=== PATIENT | female | born 1980 | race Hispanic/Latino ===

== ENCOUNTER 2017-10-06 10:12 | Inpatient (IN) | payer BC ==
[~2017-10-06] VITALS: Ht 160 cm; Wt 71.8 kg
[2017-10-06 10:53] VITALS: BP 141/74
[2017-10-06 10:56] LABS: BASOPHILS % (AUTO) 0.9 % (0.0-5.0); EOSINOPHILS % (AUTO) 1.3 % (0.0-8.0); HEMATOCRIT 39.4 % (36-48); LYMPHOCYTES % (AUTO) 28.7 % (21.0-51.0); MEAN CORPUSCULAR HEMOGLOBIN 28.4 pg (27.0-33.0); MEAN CORPUSCULAR HGB CONC 33.5 g/dL (32.0-36.0); MEAN CORPUSCULAR VOLUME 84.9 fL (79-99); MONOCYTES % (AUTO) 5.2 % (3.0-13.0); NEUTROPHILS % (AUTO) 63.9 % (40.0-77.0); NUCLEATED RED BLOOD CELLS 0.1 % (0.0-0.19); PLATELET COUNT (AUTO) 183 K/uL (130-400); RED BLOOD CELL COUNT(AUTO) 4.64 MIL/uL (4.00-5.50); RED CELL DISTRIBUTION WIDTH 14.7 % (11.0-15.5); WHITE BLOOD COUNT (AUTO) 6.5 K/uL (4.8-10.8)
[2017-10-06] MEDS ORDERED: FERR-82 PO (14:23)
[2017-10-07] VITALS (21 sets, daily range): BP systolic 120–157; BP diastolic 58–93
[2017-10-07] MEDS ORDERED: SODIUM CHLORIDE 0.9% 1000ML 0 ML IV ONE (08:27)
[2017-10-07] MEDS ORDERED: LACTATED RINGERS 1000ML 1,000 ML IV ONE (08:31)
[2017-10-07] MEDS: CEFAZOLIN SODIUM 1 GM VIAL IVP SCH ×2 (09:00→10:15)
[2017-10-07] MEDS ORDERED: ONDANSETRON HCL 4 MG/2 ML VIAL ONE (10:06)
[2017-10-07] MEDS ORDERED: FENTANYL CITRATE PF 50 MCG/1 ML 2ML VIAL ONE ×2 (10:06→12:22)
[2017-10-07] MEDS ORDERED: LIDOCAINE PF 2% 5ML ABBOJECT ONE (10:06)
[2017-10-07] MEDS ORDERED: MIDAZOLAM HCL 1 MG/ML 2ML VIAL ONE (10:06)
[2017-10-07] MEDS ORDERED: DEXAMETHASONE SOD PHOSPHATE 10MG/ML 1ML VIAL ONE (10:06)
[2017-10-07] MEDS ORDERED: PROPOFOL 10 MG/ML 20ML VIAL IV ONE (10:06)
[2017-10-07] MEDS ORDERED: PROMETHAZINE HCL 25 MG/ML 1ML AMPULE IM PRN ×2 (12:30)
[2017-10-07] MEDS ORDERED: SIMETHICONE 80 MG TAB.CHEW PO PRN (12:30)
[2017-10-07] MEDS ORDERED: BISACODYL 10 MG SUPP.RECT RC PRN ×2 (12:30)
[2017-10-07] MEDS ORDERED: DOCUSATE SODIUM 100 MG CAP PO PRN (12:30)
[2017-10-07] MEDS ORDERED: HYDROCODONE/ACETAMINOPHEN 5/325 MG TAB PO PRN ×2 (12:30)
[2017-10-07] MEDS ORDERED: DIPH,PERTUSS(ACELL),TET VAC/PF 0.5 ML VIAL IM SCH (12:30)
[2017-10-07] MEDS ORDERED: MEPERIDINE-PF 75 MG/ML SYG IM PRN (12:30)
[2017-10-07] MEDS ORDERED: KETOROLAC TROMETHAMINE 30MG/ML ONE (12:36)
[2017-10-07] MEDS ORDERED: MEPERIDINE-PF 25 MG/ML SYG ONE ×2 (12:36→12:49)
[2017-10-07] MEDS: DEXTROSE 5 %-0.45 % NACL 1,000 ML IV PRN ×2 (13:44→23:36)
[2017-10-07] MEDS ORDERED: CALDOLOR 800MG+NS 250ML 250 ML IV ONE ×2 (17:28→17:30)
[2017-10-08] MEDS: CALDOLOR 800MG+NS 250ML 250 ML IVPB SCH ×2 (01:14→08:32)
[2017-10-08 03:58] VITALS: BP 136/82
[2017-10-08 06:51] LABS: HEMATOCRIT 35.5 % (36-48); MEAN CORPUSCULAR HEMOGLOBIN 28.3 pg (27.0-33.0); MEAN CORPUSCULAR HGB CONC 33.2 g/dL (32.0-36.0); MEAN CORPUSCULAR VOLUME 85.3 fL (79-99); PLATELET COUNT (AUTO) 161 K/uL (130-400); RED BLOOD CELL COUNT(AUTO) 4.17 MIL/uL (4.00-5.50); RED CELL DISTRIBUTION WIDTH 14.4 % (11.0-15.5)
[2017-10-08 07:38] VITALS: BP 122/80
[2017-10-08] MEDS: SIMETHICONE 80 MG TAB.CHEW PO PRN ×4 (08:25→20:57)
[2017-10-08] MEDS ORDERED: CALDOLOR 800MG+NS 250ML 250 ML IV ONE (08:28)
[2017-10-08] MEDS: ACETAMINOPHEN-CODEINE 300/30MG TAB PO PRN ×3 (08:36→18:42)
[2017-10-08 11:33] VITALS: BP 119/77
[2017-10-08] MEDS: IBUPROFEN 800 MG TAB PO SCH ×3 (15:41→23:34)
[2017-10-08 16:00] VITALS: BP 119/69
[2017-10-08 19:50] VITALS: BP 136/86
[2017-10-08] MEDS: DOCUSATE SODIUM 100 MG CAP PO PRN (20:57)
[2017-10-08 23:34] VITALS: BP 122/70
[2017-10-09 03:50] VITALS: BP 115/72
[2017-10-09 08:00] VITALS: BP 132/89
[2017-10-09] MEDS: SIMETHICONE 80 MG TAB.CHEW PO PRN (08:16)
[2017-10-09] MEDS: DOCUSATE SODIUM 100 MG CAP PO PRN (08:16)
[2017-10-09] MEDS: IBUPROFEN 800 MG TAB PO SCH (08:16)
[2017-10-09] MEDS: ACETAMINOPHEN-CODEINE 300/30MG TAB PO PRN (08:19)
[2017-10-09 11:30] VITALS: BP 127/84
== END 2017-10-09 12:45 | disposition home or self-care (01) | DRG 743 ==
LOC: EDSTATUS 13:00 → DAHIP 10-07 07:39 → WSH 10-07 13:45
PROVIDERS: ADMIT Obstetrics & Gynecology; ATTEND Obstetrics & Gynecology
PROC: 0UT90ZZ Resection of Uterus, Open Approach (ICD-10-PCS; 2017-10-07)
PROC: 0DNU0ZZ Release Omentum, Open Approach (ICD-10-PCS; 2017-10-07)
PROC: 0UN10ZZ Release Left Ovary, Open Approach (ICD-10-PCS; 2017-10-07)
PROC: 0UT10ZZ Resection of Left Ovary, Open Approach (ICD-10-PCS; principal; 2017-10-07 10:30)
PROC: 0UT60ZZ Resection of Left Fallopian Tube, Open Approach (ICD-10-PCS; 2017-10-07 10:30)
DX: N94.6 Dysmenorrhea, unspecified (principal); N92.0 Excessive and frequent menstruation with regular cycle; G89.29 Other chronic pain; N73.6 Female pelvic peritoneal adhesions (postinfective); N94.10 Unspecified dyspareunia
CPT/HCPCS: 36415; 84703; 85025; 85027; 86850; 86900; 86901; 88305; 88307; 90715; A4218; A4344; J0690; J1100; J1741; J1885; J2001; J2175; J2250; J2405; J2550; J2704; J3010; J7030; J7120